=== PATIENT | female | born 1990 | race Caucasian/White ===

== ENCOUNTER → 2016-10-22 | Outpatient (CLI) | payer OTHER ==
[~2016-10-22] MED LIST: BCPILLS PO
== END | disposition home or self-care (01) ==
LOC: C.PAPS 15:20
PROVIDERS: ATTEND Obstetrics & Gynecology
DX: Z01.419 Encounter for gynecological examination (general) (routine) without abnormal findings (principal)

== ENCOUNTER 2022-12-03 12:30 | Inpatient (IN) ==
[2022-12-03 13:21] LABS: Hematocrit (blood only) 49.2 % (37.0-47.0); Hemoglobin 17.6 g/dl (12.0-16.0); Mean Corpuscular Hemoglobin 32.3 pg (25.0-34.0); Mean Corpuscular Hgb Conc 35.8 g/dL (32.0-36.0); Mean Corpuscular Volume 90.3 fL (80.0-100.0); Platelet Count 231 K/uL (130-400); RDW Coefficient of Variation 12.9 % (11.5-14.5); RDW Standard Deviation 42.2 fL (36.4-46.3); Red Blood Count 5.45 M/uL (4.20-5.40); White Blood Count 14.91 K/ul (4.8-10.8)
[2022-12-03 13:39] LABS: Partial Thromboplastin Ratio 0.8; Partial Thromboplastin Time 23.3 Seconds (21.0-31.0); Prothrombin Time 10.8 Seconds (9.0-12.0)
[2022-12-03 13:42] LABS: Alanine Aminotransferase 19 U/L (7-52); Albumin Globulin Ratio 1.6 (0.9-2); Albumin Level 4.6 gm/dl (3.4-5.0); Alkaline Phosphatase 58 U/L (34-104); Anion Gap 12 (3-11); Aspartate Aminotransferase 20 U/L (13-39); BUN Creatinine Ratio 16.2 (10-20); Bilirubin,Total 2.2 mg/dl (0.2-1.0); Blood Urea Nitrogen 16 mg/dl (6-23); Calcium 9.8 mg/dl (8.6-10.3); Carbon Dioxide 23 mmol/L (21-32); Chloride 101 mmol/L (98-107); Est GFR (African American) 86.8 ml/min; Est GFR (Non-African American) 74.9 ml/min; Globulin 2.9 gm/dl (2.5-4.0); Glucose 120 mg/dl (70-99(Fasting)); Potassium 3.8 mmol/L (3.5-5.1); Sodium 136 mmol/L (136-145); Total Protein 7.5 gm/dl (6.0-8.3)
[2022-12-03 13:46] LABS: Troponin I High Sensitivity 7.2 pg/ml (0-14)
[2022-12-03] MEDS ORDERED: SODIUM CHLORIDE 0.9% 1000ML 1,000 ML IV ONE ×2 (15:43→17:48)
[2022-12-03] MEDS ORDERED: ACETAMINOPHEN 1,000 MG/100 ML VIAL IV STA (15:43)
[2022-12-03] MEDS ORDERED: ONDANSETRON INJ 2 MG/ML 2 ML VIAL IV STA (15:43)
[2022-12-03] MEDS ORDERED: MoRPHine SULFATE 4 MG/ML 1 ML CARP\\VIAL IV STA ×2 (15:43→19:38)
--- NOTE | 2022-12-03 15:49 | Emergency Department Note ---
Impression & Plan Diffuse abdominal pain, Rectal bleeding, Leukocytosis, Colitis, Hypomagnesemia ED Provider Note NAME: RAVINDER FISHER AGE: 32 SEX: F : 1990 ARRIVES VIA: Walk-In INFORMANT: [Patient] ED PROVIDER(S): [Chris Larsen MD] CHIEF COMPLAINT: Abdominal pain HISTORY OF PRESENT ILLNESS: The patient is a 32-year-old female presents to the ER with diffuse abdominal pain that has been constant and present now since yesterday. She has also had nausea and vomiting. She started with diarrhea but now, she just has blood when she moves her bowels. The blood is bright red. The pain is severe. There has been no fever, no cough or congestion or chest pain. The patient states that s he was in the ED about a week ago for facial swelling. She was given Augmentin and prednisone. Her facial swelling has resolved. She has not taken the Augmentin for 2 days, she is finished with the steroid prescription. No previous abdominal surgeries. PMHx/PSHx: See Below SOCIAL HISTORY: See Below. PHYSICAL EXAM: GENERAL: Patient is in moderate distress from pain. HEENT: No acute trauma, normocephalic atraumatic, mucous membranes moist, no nasal congestion. NECK: No stridor, no adenopathy, no meningismus, trachea is midline. LUNGS: Clear to auscultation bilaterally, no wheeze, no rhonchi, breath sounds equal. HEART: Without murmurs gallops or rubs, regular rate and rhythm. ABDOMEN: Soft, diffusely moderately tender, bowel sounds are positive, no distention EXTREMITIES: No cyanosis or edema, full range of motion of all the joints without pain or difficulty, no signs for acute trauma. NEUROLOGIC: Oriented x 3, no acute motor or sensory deficits, no focal weakness. SKIN: No rash, no jaundice, no diaphoresis. Rectal: DIFFERENTIAL DIAGNOSIS: Foodborne or viral illness, diverticular bleeding, colitis, C. difficile colitis, bacterial intestinal infection, dehydration, electrolyte imbalance, anemia, medication reaction, among others. EMERGENCY DEPARTMENT COURSE/PROCEDURES: Prior/Outside records reviewed: Recent ED note. ECG per my interpretation: Indication was GI bleeding. The ECG shows a normal sinus rhythm with a rate of 72. There is no ST elevation, no PVCs but the QTc is 431. Continuous Cardiac Monitoring per my interpretation: An order was placed for continuous cardiac monitoring. The monitor shows a rate of 76 with normal sinus rhythm. Observation Note: The patient was placed in observation status at 1540. Obser vation was initiated to ensure adequate pain control and symptom control. During the time in observation, the patient was frequently reassessed and received IV pain medication IV hydration and monitoring. On Final reassessment the patient was still in discomfort and showing signs of rectal bleeding--the patient will be admitted at this time. Total observation time of around 6 hours. MEDICAL DECISION MAKING: There is a moderate leukocytosis, this could be consistent with infection, her pain or her recent steroid use. The patient was not anemic, hemoglobin was 17 .6. There was a normal platelet count. No coagulopathy. No renal failure. Magnesium was somewhat low at 1.6. Bilirubin was elevated, the remaining liver enzymes were unremarkable. ECG showed a normal sinus rhythm, no ischemia. Cardiac enzyme testing x1 was not consistent with acute cardiac injury. testing returned negative. Urinalysis showed dehydration, no obvious infection. Occult stool testing did show heme positivity. C. difficile testing returned negative. Stool cultures are currently pending. The patient received IV saline, 2 L. She was given IV Zofran and IV morphine, additional IV morphine was ordered. She was ordered for IV magnesium, IV Tylenol. Patient was persisting with discomfort and rectal bleeding. She was in need of a hospital stay. The cause for the rectal bleeding and colitis is not clear. It does not appear to be C. difficile colitis. We await stool culture results. I did speak with the patient and case management, the on-call hospitalist was consulted. DISPOSITION: Patient's presentation and findings warrant a hospital stay. Past Med/Surg History Medical History Migraine Surgical History (Updated 07/24/19 @ 17:18 by Melissa Munoz MD) H/O anterior cruciate ligament surgery (~2005) Social History Smoking Status: Current every day smoker Tobacco Type: Cigarettes and E-cigarettes / Vaping Preferred Language: [place]arag[place] Feels Safe at Home: Yes Allergies Allergies Allergy/AdvReac Type Severity Reaction Status Date / Time No Known Allergies Allergy Unknown Verified 11/26/22 16:30 Home Meds Home Medications Medication Instructions Recorded Confirmed norgestimate 0.25 mg-ethinyl 1 tab PO DAILY 09/12/20 12/03/22 estradiol 35 mcg tablet (Kinney-Linyah) sumatriptan succinate 50 mg tablet 50 mg PO DIRECTED PRN Migraine 11/26/22 12/03/22 Headache amoxicillin 875 mg-potassium See Rx Instructions .Route .COMPLEX 12/03/22 12/03/22 clavulanate 125 mg tablet methylprednisolone 4 mg tablets in See Rx Instructions .Route .COMPLEX 12/03/22 12/03/22 a dose pack (Medrol (Marcus)) Results & Data (ED) Vital Signs Vital Signs - 24 hr 12/03/22 12:46 12/03/22 15:40 12/03/22 15:40 Temperature 36.2 C L Temperature Source Temporal Artery Scan Pulse Rate 81 Pulse Rate [Apical] 76 Pulse Rate from SpO2 Sensor Pulse Rhythm Regular Respiratory Rate 20 20 Respiratory Effort / Characteristics Non-Labored Spontaneous Non-Labored Spontaneous Respiratory Depth Normal Normal Blood Pressure 106/69 Blood Pressure [Left Arm] 121/85 Blood Pressure Mean 81 Blood Pressure Mean [Left Arm] 97 Pulse Oximetry 100 97 98 Oxygen Delivery Method Room Air Room Air Sepsis Recent Fever Within 48 Hours No Sepsis New/Unexplained Change in Mental Status No Sepsis Action Taken by Nursing No Action Required 12/03/22 15:54 12/03/22 15:38 12/03/22 15:38 Temperature Temperature Source Pulse Rate 70 71 Pulse Rate [Apical] Pulse Rate from SpO2 Sensor 71 Pulse Rhythm Respiratory Rate 28 H Respiratory Effort / Characteristics Respiratory Depth Blood Pressure 121/85 Blood Pressure [Left Arm] Blood Pressure Mean 100 Blood Pressure Mean [Left Arm] Pulse Oximetry 99 Oxygen Delivery Method Sepsis Recent Fever Within 48 Hours Sepsis New/Unexplained Change in Mental Status Sepsis Action Taken by Nursing 12/03/22 16:00 12/03/22 16:00 12/03/22 16:30 Temperature Temperature Source Pulse Rate 63 Pulse Rate [Apical] Pulse Rate from SpO2 Sensor 63 Pulse Rhythm Respiratory Rate 28 H Respiratory Effort / Characteristics Respiratory Depth Blood Pressure 116/71 128/72 Blood Pressure [Left Arm] Blood Pressure Mean 98 83 Blood Pressure Mean [Left Arm] Pulse Oximetry 100 Oxygen Delivery Method Sepsis Recent Fever Within 48 Hours Sepsis New/Unexplained Change in Mental Status Sepsis Action Taken by Nursing 12/03/22 16:30 12/03/22 17:18 12/03/22 17:21 Temperature Temperature Source Pulse Rate 62 60 Pulse Rate [Apical] Pulse Rate from SpO2 Sensor 62 70 62 Pulse Rhythm Respiratory Rate 19 18 Respiratory Effort / Characteristics Respiratory Depth Blood Pressure Blood Pressure [Left Arm] Blood Pressure Mean Blood Pressure Mean [Left Arm] Pulse Oximetry 97 97 99 Oxygen Delivery Method Sepsis Recent Fever Within 48 Hours Sepsis New/Unexplained Change in Mental Status Sepsis Action Taken by Nursing 12/03/22 17:21 12/03/22 17:30 12/03/22 17:30 Temperature Temperature Source Pulse Rate 54 L Pulse Rate [Apical] Pulse Rate from SpO2 Sensor 53 L Pulse Rhythm Respiratory Rate 24 Respiratory Effort / Characteristics Respiratory Depth Blood Pressure 137/88 121/79 Blood Pressure [Left Arm] Blood Pressure Mean 102 94 Blood Pressure Mean [Left Arm] Pulse Oximetry 96 Oxygen Delivery Method Sepsis Recent Fever Within 48 Hours Sepsis New/Unexplained Change in Mental Status Sepsis Action Taken by Nursing 12/03/22 18:00 12/03/22 18:00 12/03/22 18:30 Temperature Temperature Source Pulse Rate 63 Pulse Rate [Apical] Pulse Rate from SpO2 Sensor 62 Pulse Rhythm Respiratory Rate 20 Respiratory Effort / Characteristics Respiratory Depth Blood Pressure 136/84 133/83 Blood Pressure [Left Arm] Blood Pressure Mean 92 97 Blood Pressure Mean [Left Arm] Pulse Oximetry 100 Oxygen Delivery Method Sepsis Recent Fever Within 48 Hours Sepsis New/Unexplained Change in Mental Status Sepsis Action Taken by Nursing 12/03/22 18:30 12/03/22 20:38 12/03/22 20:55 Temperature Temperature Source Pulse Rate 54 L 60 Pulse Rate [Apical] 63 Pulse Rate from SpO2 Sensor 54 L Pulse Rhythm Respiratory Rate 25 H 16 Respiratory Effort / Characteristics Respiratory Depth Blood Pressure Blood Pressure [Left Arm] 134/69 Blood Pressure Mean Blood Pressure Mean [Left Arm] 90 Pulse Oximetry 100 100 Oxygen Delivery Method Room Air Sepsis Recent Fever Within 48 Hours Sepsis New/Unexplained Change in Mental Status Sepsis Action Taken by Nursing 12/03/22 21:00 12/03/22 21:30 Temperature Temperature Source Pulse Rate 59 L 58 L Pulse Rate [Apical] Pulse Rate from SpO2 Sensor 59 L 57 L Pulse Rhythm Respiratory Rate 24 17 Respiratory Effort / Characteristics Respiratory Depth Blood Pressure 115/66 Blood Pressure [Left Arm] Blood Pressure Mean 82 Blood Pressure Mean [Left Arm] Pulse Oximetry 97 94 Oxygen Delivery Method Room Air Room Air Sepsis Recent Fever Within 48 Hours Sepsis New/Unexplained Change in Mental Status Sepsis Action Taken by [facility] Medications Current Medication List: was personally reviewed by me Laboratory Data Attestation: I reviewed the patient's lab results. 12/03/22 13:06 12/03/22 13:06 Lab Results 12/03/22 12/03/22 12/03/22 Range/Units 13:06 13:06 13:06 WBC 14.91 H (4.8-10.8) K/ul RBC 5.45 H (4.20-5.40) M/uL Hgb 17.6 H (12.0-16.0) g/dl Hct 49.2 H (37.0-47.0) % MCV 90.3 (80.0-100.0) fL MCH 32.3 (25.0-34.0) pg MCHC 35.8 (32.0-36.0) g/dL RDW Std Deviation 42.2 (36.4-46.3) fL RDW Coeff of Zaria 12.9 (11.5-14.5) % Plt Count 231 (130-400) K/uL MPV 10.0 (9.4-12.4) fL PT 10.8 (9.0-12.0) Seconds INR 1.0 (0.9-1.1) APTT 23.3 (21.0-31.0) Seconds PTT Ratio 0.8 Sodium (136-145) mmol/L Potassium (3.5-5.1) mmol/L Chloride (98-107) mmol/L Carbon Dioxide (21-32) mmol/L Anion Gap (3-11) BUN (6-23) mg/dl Creatinine (0.6-1.2) mg/dl Est Cr Clr Drug Dosing Est GFR ( Amer) ml/min Est GFR (Non-Af Amer) ml/min BUN/Creatinine Ratio (10-20) Glucose (70-99(Fasting)) mg/dl Calcium (8.6-10.3) mg/dl Magnesium (1.7-2.4) mg/dl Total Bilirubin (0.2-1.0) mg/dl AST (13-39) U/L ALT (7-52) U/L Alkaline Phosphatase (34-104) U/L Troponin I High Sens (0-14) pg/ml Total Protein (6.0-8.3) gm/dl Albumin (3.4-5.0) gm/dl Globulin (2.5-4.0) gm/dl Albumin/Globulin Ratio (0.9-2) HCG, Qual (Negative) Urine Color Urine Appearance (Clear) Urine pH (4.5-7.5) Ur Specific Slemp (1.000-1.030) Urine Protein (Negative) Urine Glucose (UA) (Negative) Urine Ketones (Negative) Urine Blood (Negative) Urine Nitrite (Negative) Urine Bilirubin (Negative) Urine Urobilinogen (Negative) Ur Leukocyte Esterase (Negative) Urine WBC (Auto) (0-5) /hpf Urine RBC (Auto) (0-4) /hpf U Hyaline Cast (Auto) (0-5) /lpf U Epithel Cells (Auto) (0-5) /lpf Urine Bacteria (Auto) (Negative) POC Stool Occult Blood (Negative) Stl C. diff Tox B Gene (Neg) Blood Type A Positive Antibody Screen NEGATIVE 12/03/22 12/03/22 12/03/22 Range/Units 13:06 13:06 15:37 WBC (4.8-10.8) K/ul RBC (4.20-5.40) M/uL Hgb (12.0-16.0) g/dl Hct (37.0-47.0) % MCV (80.0-100.0) fL MCH (25.0-34.0) pg MCHC (32.0-36.0) g/dL RDW Std Deviation (36.4-46.3) fL RDW Coeff of Zaria (11.5-14.5) % Plt Count (130-400) K/uL MPV (9.4-12.4) fL PT (9.0-12.0) Seconds INR (0.9-1.1) APTT (21.0-31.0) Seconds PTT Ratio Sodium 136 (136-145) mmol/L Potassium 3.8 (3.5-5.1) mmol/L Chloride 101 (98-107) mmol/L Carbon Dioxide 23 (21-32) mmol/L Anion Gap 12 H (3-11) BUN 16 (6-23) mg/dl Creatinine 0.99 (0.6-1.2) mg/dl Est Cr Clr Drug Dosing Not Reportable Est GFR ( Amer) 86.8 ml/min Est GFR (Non-Af Amer) 74.9 ml/min BUN/Creatinine Ratio 16.2 (10-20) Glucose 120 H (70-99(Fasting)) mg/dl Calcium 9.8 (8.6-10.3) mg/dl Magnesium 1.6 L (1.7-2.4) mg/dl Total Bilirubin 2.2 H (0.2-1.0) mg/dl AST 20 (13-39) U/L ALT 19 (7-52) U/L Alkaline Phosphatase 58 (34-104) U/L Troponin I High Sens 7.2 (0-14) pg/ml Total Protein 7.5 (6.0-8.3) gm/dl Albumin 4.6 (3.4-5.0) gm/dl Globulin 2.9 (2.5-4.0) gm/dl Albumin/Globulin Ratio 1.6 (0.9-2) HCG, Qual Negative (Negative) Urine Color Morgan Urine Appearance Clear (Clear) Urine pH 7.5 (4.5-7.5) Ur Specific Slemp 1.033 H (1.000-1.030) Urine Protein 1+ H (Negative) Urine Glucose (UA) Negative (Negative) Urine Ketones 2+ H (Negative) Urine Blood Trace H (Negative) Urine Nitrite Negative (Negative) Urine Bilirubin Negative (Negative) Urine Urobilinogen Negative (Negative) Ur Leukocyte Esterase Trace H (Negative) Urine WBC (Auto) 1-5 (0-5) /hpf Urine RBC (Auto) 10-30 H (0-4) /hpf U Hyaline Cast (Auto) 1-5 (0-5) /lpf U Epithel Cells (Auto) >30 H (0-5) /lpf Urine Bacteria (Auto) Negative (Negative) POC Stool Occult Blood (Negative) Stl C. diff Tox B Gene (Neg) Blood Type Antibody Screen 12/03/22 12/03/22 Range/Units 16:58 16:58 WBC (4.8-10.8) K/ul RBC (4.20-5.40) M/uL Hgb (12.0-16.0) g/dl Hct (37.0-47.0) % MCV (80.0-100.0) fL MCH (25.0-34.0) pg MCHC (32.0-36.0) g/dL RDW Std Deviation (36.4-46.3) fL RDW Coeff of Zaria (11.5-14.5) % Plt Count (130-400) K/uL MPV (9.4-12.4) fL PT (9.0-12.0) Seconds INR (0.9-1.1) APTT (21.0-31.0) Seconds PTT Ratio Sodium (136-145) mmol/L Potassium (3.5-5.1) mmol/L Chloride (98-107) mmol/L Carbon Dioxide (21-32) mmol/L Anion Gap (3-11) BUN (6-23) mg/dl Creatinine (0.6-1.2) mg/dl Est Cr Clr Drug Dosing Est GFR ( Amer) ml/min Est GFR (Non-Af Amer) ml/min BUN/Creatinine Ratio (10-20) Glucose (70-99(Fasting)) mg/dl Calcium (8.6-10.3) mg/dl Magnesium (1.7-2.4) mg/dl Total Bilirubin (0.2-1.0) mg/dl AST (13-39) U/L ALT (7-52) U/L Alkaline Phosphatase (34-104) U/L Troponin I High Sens (0-14) pg/ml Total Protein (6.0-8.3) gm/dl Albumin (3.4-5.0) gm/dl Globulin (2.5-4.0) gm/dl Albumin/Globulin Ratio (0.9-2) HCG, Qual (Negative) Urine Color Urine Appearance (Clear) Urine pH (4.5-7.5) Ur Specific Slemp (1.000-1.030) Urine Protein (Negative) Urine Glucose (UA) (Negative) Urine Ketones (Negative) Urine Blood (Negative) Urine Nitrite (Negative) Urine Bilirubin (Negative) Urine Urobilinogen (Negative) Ur Leukocyte Esterase (Negative) Urine WBC (Auto) (0-5) /hpf Urine RBC (Auto) (0-4) /hpf U Hyaline Cast (Auto) (0-5) /lpf U Epithel Cells (Auto) (0-5) /lpf Urine Bacteria (Auto) (Negative) POC Stool Occult Blood Positive A (Negative) Stl C. diff Tox B Gene Negative Cdiff Gene (Neg) Blood Type Antibody Screen Administered Medications Discontinued Medications Sodium Chloride (Nss 1000ml) 1,000 mls @ 999 mls/hr IV .Q1H1M ONE Stop: 12/03/22 16:43 Last Infusion: 12/03/22 19:33 Dose: 0 mls/hr Documented By: Admin: 12/03/22 15:51 Dose: 999 mls/hr Documented By: HS Acetaminophen (Ofirmev) 1,000 mg in 100 mls @ 400 mls/hr IV NOW STA Stop: 12/03/22 15:57 Last Infusion: 12/03/22 16:09 Dose: 0 mls/hr Documented By: Admin: 12/03/22 15:52 Dose: 400 mls/hr Documented By: HS Magnesium Sulfate/Dextrose (Magnesium Sulfate / D5w) 1 gm in 100 mls @ 100 mls/hr IV NOW STA Stop: 12/03/22 17:41 Last Infusion: 12/03/22 19:33 Dose: 0 mls/hr Documented By: [facility] Admin: 12/03/22 17:19 Dose: 100 mls/hr Documented By: HS Sodium Chloride (Nss 1000ml) 1,000 mls @ 999 mls/hr IV .Q1H1M ONE Stop: 12/03/22 18:48 Last Infusion: 12/03/22 19:33 Dose: 0 mls/hr Documented By: F Admin: 12/03/22 18:30 Dose: 999 mls/hr Documented By: HS Ioversol (Optiray 320 100ml) 92 ml IV ONCE ONE Stop: 12/03/22 16:18 Last Admin: 12/03/22 19:33 Dose: Not Given Documented By: [facility] Morphine Sulfate (Morphine Sulfate 4 Mg/Ml 1 Ml Carp\Vial) 4 mg IV NOW STA Stop: 12/03/22 15:44 Last Admin: 12/03/22 15:51 Dose: 4 mg Documented By: HS Morphine Sulfate (Morphine Sulfate 4 Mg/Ml 1 Ml Carp\Vial) 4 mg IV NOW STA Stop: 12/03/22 19:39 Last Admin: 12/03/22 19:57 Dose: 4 mg Documented By: VALE Ondansetron HCl (Ondansetron Inj 2 Mg/Ml 2 Ml Vial) 4 mg IV NOW STA Stop: 12/03/22 15:44 Last Admin: 12/03/22 15:51 Dose: 4 mg Documented By: Imaging Data Radiologist's Impression: Abdomen/Pelvis CT 12/03/22 15:43 CT SCAN OF THE ABDOMEN AND PELVIS WITH IV CONTRAST CLINICAL HISTORY: Generalized abdominal pain. Hematochezia. COMPARISON STUDY: No priors. TECHNIQUE: Following the IV administration of 92 cc of Optiray 320, CT scan of the abdomen and pelvis is performed from the lung bases to the proximal femora. Images are reviewed in the axial, sagittal, and coronal planes. IV contrast was administered without complication. A dose lowering technique was utilized adhering to the principles of ALARA. CT DOSE: 710.03 mGy.cm FINDINGS: Lung bases: The heart is normal in size and without pericardial effusion. The lung bases are clear. Liver: The contrast-enhanced liver is normal in size, contour, and attenuation. There is no intrahepatic biliary ductal dilatation. The hepatic veins and portal veins are patent. An 11 mm cyst is incidentally noted in the right lobe. Gallbladder: Unremarkable. Spleen: Normal in size and attenuation. Pancreas: Unremarkable. Adrenal glands: Unremarkable. Kidneys: The contrast enhanced kidneys are normal in size and without hydroneph rosis. The kidneys enhance symmetrically. Abdominal vasculature: The abdominal aorta is normal in course and caliber. Bowel: There is significant wall thickening and edema seen throughout the colon. This extends from the cecum to the proximal descending colon, and there is associated mucosal hyperemia and surrounding inflammation/fluid. Findings are consistent with a nonspecific colitis. No bowel obstruction is identified. The appendix is normal as visualized. Residual enteric contrast is suggested within the left colon. Peritoneum: There is no intraperitoneal free air or abdominal ascites. There is a small fat-containing umbilical hernia. Lymphadenopathy: None. Pelvic viscera: The bladder is decompressed and grossly unremarkable. The uterus and adnexa are normal as visualized noting ovarian follicles. There is a small volume of free fluid in the cul-de-sac. A tampon is in place. Skeletal structures: No lytic or blastic lesions are seen. IMPRESSION: 1. Findings are consistent with nonspecific colitis, greatest involving the right colon. This is likely on an infectious/inflammatory basis and clinical correlation will be required. 2. Free fluid in the cul-de-sac is nonspecific and may be physiologic. 3. Additional findings as above. ACT 112: Negative or not required by law. Electronically signed by: Chris Ridley M.D. 12/03/2022 4:40 PM Discharge Plan Visit Data Chief Complaint: Abdominal Pain Stated Complaint: BLOODY STOOL, STOMACH PAIN ED Provider: Chris Larsen Discharge Problem: Diffuse abdominal pain, Rectal bleeding, Leukocytosis, Colitis, Hypomagnesemia Patient Disposition: Admitted As Inpatient Condition: Fair Forms Stand Alone Forms: [facility] Prescriptions Prescriptions: No Action norgestimate-ethinyl estradiol [Kinney-Linyah] 0.25-35 mg-mcg tablet 1 tab PO DAILY sumatriptan succinate 50 mg tablet 50 mg PO DIRECTED PRN (Reason: Migraine Headache) Rx Instructions: last filled in mar 2022 methylprednisolone [Medrol (Marcus)] 4 mg tablets,dose pack See Rx Instructions .ROUTE .COMPLEX Rx Instructions: As directed. Verified with pharmacy, pt should be finished with medication amoxicillin-pot clavulanate 875-125 mg tablet See Rx Instructions .ROUTE .COMPLEX Rx Instructions: 1 bid. Verified with pharmacy Referrals Referrals: PCP,NO [Primary Care Provider] -
[2022-12-03 15:53] LABS: Appearance Urine Clear (Clear); Bacteria Urine Automated Negative (Negative); Bilirubin Urine Negative (Negative); Blood Urine Trace (Negative); Color Urine Orange; Epithelial Cell Urine Auto >30 /lpf (0-5); Glucose Urine UA Negative (Negative); Ketones Urine 2+ (Negative); Leukocyte Esterase Urine Trace (Negative); Nitrite Urine Negative (Negative); Specific Gravity Urine 1.033 (1.000-1.030); Urobilinogen Urine Negative (Negative); pH Urine 7.5 (4.5-7.5)
[2022-12-03 15:59] LABS: Protein Urine 1+ (Negative)
[2022-12-03] MEDS ORDERED: OPTIRAY 320 100ml IV ONE (16:17)
[2022-12-03 16:36] LABS: Pregnancy Test, Serum Negative (Negative)
[2022-12-03 16:39] LABS: Magnesium 1.6 mg/dl (1.7-2.4)
--- NOTE | 2022-12-03 16:41 | CT Scan Report ---
CT SCAN OF THE ABDOMEN AND PELVIS WITH IV CONTRAST CLINICAL HISTORY: Generalized abdominal pain. Hematochezia. COMPARISON STUDY: No priors. TECHNIQUE: Following the IV administration of 92 cc of Optiray 320, CT scan of the abdomen and pelvi s is performed from the lung bases to the proximal femora. Images are reviewed in the axial, sagittal , and coronal planes. IV contrast was administered without complication. A dose lowering technique wa s utilized adhering to the principles of ALARA. CT DOSE: 710.03 mGy.cm FINDINGS: Lung bases: The heart is normal in size and without pericardial effusion. The lung bases are clear. Liver: The contrast-enhanced liver is normal in size, contour, and attenuation. There is no intrahepa tic biliary ductal dilatation. The hepatic veins and portal veins are patent. An 11 mm cyst is incide ntally noted in the right lobe. Gallbladder: Unremarkable. Spleen: Normal in size and attenuation. Pancreas: Unremarkable. Adrenal glands: Unremarkable. Kidneys: The contrast enhanced kidneys are normal in size and without hydronephrosis. The kidneys enh ance symmetrically. Abdominal vasculature: The abdominal aorta is normal in course and caliber. Bowel: There is significant wall thickening and edema seen throughout the colon. This extends from th e cecum to the proximal descending colon, and there is associated mucosal hyperemia and surrounding i nflammation/fluid. Findings are consistent with a nonspecific colitis. No bowel obstruction is identi fied. The appendix is normal as visualized. Residual enteric contrast is suggested within the left c olon. Peritoneum: There is no intraperitoneal free air or abdominal ascites. There is a small fat-containin g umbilical hernia. Lymphadenopathy: None. Pelvic viscera: The bladder is decompressed and grossly unremarkable. The uterus and adnexa are aileen l as visualized noting ovarian follicles. There is a small volume of free fluid in the cul-de-sac. A tampon is in place. Skeletal structures: No lytic or blastic lesions are seen. IMPRESSION: 1. Findings are consistent with nonspecific colitis, greatest involving the right colon. This is like ly on an infectious/inflammatory basis and clinical correlation will be required. 2. Free fluid in the cul-de-sac is nonspecific and may be physiologic. 3. Additional findings as above. ACT 112: Negative or not required by law. Electronically signed by: Chris Ridley M.D. 12/03/2022 4:40 PM
[2022-12-03] MEDS ORDERED: MAGNESIUM SULFATE / D5W 1 GM/100 ML BAG IV STA (16:42)
--- NOTE | 2022-12-03 20:58 | History & Physical Report ---
Date of Service December 03, 2022 Assessment & Plan (1) Bloody diarrhea: (2) Hx of migraines: Plan Pt is a 32 yo female with a past medical history of migraines who presents to the hospital on 12/03/22 for bloody stools and abdominal pain. #Bloody diarrhea, abdominal pain - diarrhea started yesterday around noon, bloody since midnight, cramping since yesterday afternoon - pt was on Augmentin since 11/26, last dose yesterday morning - CT abd showed colitis, worst in R colon - Hgb 17.6, likely secondary to dehydration, will do LR 125/hr for 2L - stool labs pending, including c diff - due to recent facial swelling and R colon inflammation noted on CT, if stool labs come back negative, consider IBD like crohns #Migraine - continue home sumatriptan VTE: pt low risk Dispo: Medsurg Consults: - History of Present Illness Chief Complaint: Bloody stools Primary Care Provider: NO PCP Pt is a 32 yo female with a past medical history of migraines who presents to the hospital on 12/03/22 for bloody stools and abdominal pain. Pt states that she started to feel sick yesterday afternoon with several bouts of watery diarrhea, then around 3pm she started to get abdominal pain and nausea with one episode of nonbloody emesis. She states that from about midnight last night onwards, she has been having bloody diarrhea with mostly blood and very little fecal material. She was here about 1 week ago for facial swelling and was sent home on augmentin and steroids. She states her last dose of augmentin was yesterday morning. She states that her abdominal pain has been diffuse and has not lightened up at all since it started yesterday. No fever or chills. No recent travel noted. No other complaints at this time. Allergies Allergy/AdvReac Type Severity Reaction Status Date / Time No Known Allergies Allergy Unknown Verified 11/26/22 16:30 Home Medications Medication Instructions Recorded Confirmed Type norgestimate 0.25 mg-ethinyl 1 tab PO DAILY 09/12/20 12/03/22 History estradiol 35 mcg tablet ([place]-Linyah) sumatriptan succinate 50 mg tablet 50 mg PO DIRECTED PRN Migraine 11/26/22 12/03/22 History Headache amoxicillin 875 mg-potassium See Rx Instructions .Route .COMPLEX 12/03/22 12/03/22 History clavulanate 125 mg tablet methylprednisolone 4 mg tablets in See Rx Instructions .Route .COMPLEX 12/03/22 12/03/22 History a dose pack (Medrol (Marcus)) Past Med/Surg History Medical History Migraine Surgical History (Updated 07/24/19 @ 17:18 by Melissa Munoz MD) H/O anterior cruciate ligament surgery (~2005) Social History Smoking Status: Current every day smoker Tobacco Type: Cigarettes and E-cigarettes / Vaping Cigarettes Per Day: 5; Tobacco Cessation Education Requested by Patient: No Hx Alcohol Use: Yes Hx Substance Use: No Preferred Language: [place] Communication Ability: Effective 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 Beliefs That Will Affect Care: None Current Living Situation: Family Other Information That Helps Us Care for You: No Feels Safe at Home: Yes Safety Concerns: Feels Safe At This Time Assistive Devices: None Review of Systems Review of Systems: Constitutional: denies fever, chills, Cardio: denies chest pain, palpitations Resp: denies shortness of breath, cough GI: +abdominal pain, +nausea, +diarrhea Physical Exam Physical Exam: General: Alert and oriented, no acute distress, HEENT: Normocephalic, moist oral mucosa, Cardio: Regular rate and rhythm, no murmur, Resp: Lungs clear to auscultation b/l, GI: Soft but diffusely tender, bowel sounds active Skin: Warm, pink, dry, Psych: Mood-affect congruence. Results & Data Results & Data Vital Signs (Past 12 Hours) Vital Signs Temp Pulse Pulse Resp BP BP Pulse Ox 12/03/22 20:38 63 16 134/69 100 12/03/22 18:30 54 L 25 H 100 12/03/22 18:30 133/83 12/03/22 18:00 63 20 100 12/03/22 18:00 136/84 12/03/22 17:30 54 L 24 96 12/03/22 17:30 121/79 12/03/22 17:21 137/88 12/03/22 17:21 60 18 99 12/03/22 17:18 97 08/21/23 16:30 62 19 97 12/03/22 16:30 128/72 12/03/22 16:00 63 28 H 100 12/03/22 16:00 116/71 12/03/22 15:38 71 28 H 99 12/03/22 15:38 121/85 12/03/22 15:54 70 12/03/22 15:40 98 12/03/22 15:40 76 20 121/85 97 12/03/22 12:46 36.2 C L 81 20 106/69 100 O2 Del Method 12/03/22 20:38 Room Air 12/03/22 18:30 12/03/22 18:30 12/03/22 18:00 12/03/22 18:00 12/03/22 17:30 12/03/22 17:30 12/03/22 17:21 12/03/22 17:21 12/03/22 17:18 12/03/22 16:30 12/03/22 16:30 12/03/22 16:00 12/03/22 16:00 12/03/22 15:38 12/03/22 15:38 12/03/22 15:54 12/03/22 15:40 Room Air 12/03/22 15:40 12/03/22 12:46 Room Air Supervising Physician Co-Signing Physician Notes Patient seen and examined, chart reviewed, case discussed with Dr. De La Cruz and I agree with the assessment and plan as above. In brief, patient is a 32yo female presenting with severe diffuse abdominal pain and watery diarrhea then bloody diarrhea ongoing x 1 day. Also with nausea and dry heaving. No fever or chills. No sick contacts or recent travel. Patient was seen in the ER one week ago for facial edema and was prescribed Augmentin Patient afebrile, HD stable, appears ill but non-toxic Skin - no rash HEENT - dry mucus membranes, neck supple Heart - +S1/S2, regular, no m/r/g Lungs - CTA Abd - soft, diffusely tender without rebound or peritonitis, bowel sounds present Ext - warm, well perfused Labs and images reviewed Appears dehydrated based on hemoconcentration, ketones and SG in urine Electrolytes and renal function are intact CT with nonspecific colitis mostly in right colon Assessment/Plan -Suspect infectious colitis. Possible C.diff given recent antibiotic use -Awaiting stool panel and c. diff IVF and Pain control Remainder as above Resident Activity Tracking Resident Involvement: Resident Care Provided Care Provided: Adult [facility]
[2022-12-03 22:09] LABS: Adenovirus F 40/41 PCR Not Detected (NotDetected); Astrovirus PCR Not Detected (NotDetected); Campylobacter PCR Not Detected (NotDetected); Cryptosporidium PCR Not Detected (NotDetected); Cyclospora cayetanensis PCR Not Detected (NotDetected); Entamoeba histolytica PCR Not Detected (NotDetected); Enteroaggregative E.coli(EAEC) Not Detected (NotDetected); Enteropathogenic E.coli (EPEC) Not Detected (NotDetected); Enterotoxigenic E.coli (ETEC) Not Detected (NotDetected); Giardia lamblia PCR Not Detected (NotDetected); Norovirus GI/GII PCR Not Detected (NotDetected); Plesiomonas shigelloides PCR Not Detected (NotDetected); Rotavirus A PCR Not Detected (NotDetected); Salmonella PCR Not Detected (NotDetected); Sapovirus PCR Not Detected (NotDetected); Shiga-like Toxin E.coli (STEC) Not Detected (NotDetected); Shigella/Enteroinvasive E.coli Not Detected (NotDetected); Vibrio cholerae PCR Not Detected (NotDetected); Vibrio species PCR Not Detected (NotDetected); Yersinia enterocolitica PCR Not Detected (NotDetected)
[2022-12-03] MEDS ORDERED: MoRPHine SULFATE 4 MG/ML 1 ML CARP\\VIAL ONE (22:39)
[2022-12-03] MEDS: LACTATED RINGER'S 1,000 ML IV SCH (22:41)
[2022-12-04] MEDS: MoRPHine SULFATE 4 MG/ML 1 ML CARP\\VIAL IV PRN ×2 (02:15→06:38)
--- NOTE | 2022-12-04 06:07 | Electrocardiogram Report ---
Test Reason : Blood Pressure : / mmHG Vent. Rate : 072 BPM Atrial Rate : 072 BPM P-R Int : 130 ms QRS Dur : 070 ms QT Int : 394 ms P-R-T Axes : 074 073 051 degrees QTc Int : 431 ms Normal sinus rhythm Normal ECG When compared with ECG of 12-SEP-2020 10:35, No significant change was found Confirmed by Elijah Ortega ([id number]) on 12/04/2022 6:06:55 AM Referred By: Confirmed By:Elijah Ortega
[2022-12-04] MEDS: LACTATED RINGER'S 1,000 ML IV SCH (06:35)
[2022-12-04 09:09] LABS: Basophils # (auto) 0.03 K/uL (0-0.2); Basophils % (auto) 0.2 %; Eosinophils # (auto) 0.09 K/uL (0-0.50); Eosinophils % (auto) 0.6 %; Hemoglobin 14.6 g/dl (12.0-16.0); Immature Granulocytes # (auto) 0.08 K/uL (0.01-0.20); Immature Granulocytes % (auto) 0.5 %; Lymphocytes # (auto) 2.59 K/uL (1.2-3.4); Lymphocytes % (auto) 17.2 %; Mean Corpuscular Hemoglobin 32.6 pg (25.0-34.0); Mean Corpuscular Hgb Conc 34.8 g/dL (32.0-36.0); Mean Corpuscular Volume 93.8 fL (80.0-100.0); Mean Platelet Volume 10.1 fL (9.4-12.4); Monocytes # (auto) 1.55 K/uL (0.11-0.59); Monocytes % (auto) 10.3 %; Neutrophils # (auto) 10.76 K/uL (1.40-6.50); Neutrophils % (auto) 71.2 %; Platelet Count 166 K/uL (130-400); RDW Standard Deviation 44.6 fL (36.4-46.3); Red Blood Count 4.48 M/uL (4.20-5.40)
[2022-12-04] MEDS ORDERED: ONDANSETRON INJ 2 MG/ML 2 ML VIAL IV PRN (09:23)
[2022-12-04 09:26] LABS: BUN Creatinine Ratio 9.4 (10-20); Calcium 8.2 mg/dl (8.6-10.3); Creatinine Clr Calc Pharmacy 130.7 ml/min; Est GFR (African American) 135.9 ml/min; Est GFR (Non-African American) 117.2 ml/min; Potassium 4.1 mmol/L (3.5-5.1)
[2022-12-04] MEDS: HYDROmorphone INJ 1 MG/ML SYRINGE IV PRN ×3 (09:41→19:21)
[2022-12-04] MEDS: metroNIDAZOLE 500 MG/100 ML BAG IV SCH ×2 (13:07→19:24)
[2022-12-04] MEDS: CIPROFLOXACIN / D5W 400 MG/200 ML BAG IV SCH ×2 (14:10→23:12)
[2022-12-04] MEDS: oxyCODONE HCL IR 5 MG TAB (IMMEDIATE RELEASE) PO PRN ×2 (15:14→21:14)
--- NOTE | 2022-12-04 16:48 | Hospitalist Progress Note ---
Date of Service December 04, 2022 Assessment & Plan (1) Infectious enteritis: Plan: Continue IV fluids. Pain control measures. Stool BioFire is negative. She was recently on antibiotics but C. difficile toxin is negative. Nevertheless, she is now on intravenous Cipro and Flagyl, day 1 (2) Hx of migraines: Plan: Triptan treatment as needed Plan Hopeful discharge back to home soon once symptoms lee Admission and Anticipated Discharge Date Admission Date: December 04, 2022 Subjective Alert and oriented. Complaining of diffuse abdominal discomfort. White blood cell count is elevated. She was recently on antibiotics but C. difficile toxin is negative. Nevertheless, she has been started on intravenous Cipro and Flag yl. Continue IV fluids. Full liquid diet as tolerated Review of Systems Review of Systems: Constitutional-no fever or chills ENT-no blurred vision, no double vision, no epistaxis, no sore throat Respiratory-no cough, no wheezing, no shortness of breath Cardiac-no palpitations, no chest pain, no syncope GI-nausea. Several episodes of vomiting without hematemesis. Several episodes of bloody diarrhea. Diffuse abdominal pain -no urinary retention, no urinary incontinence, no dysuria, no hematuria Musculoskeletal-no joint pain, no muscle tenderness Skin-no bruising, no rashes, no pruritus Neuro-no isolated weakness, no paresthesia, no weakness Psych-no depression, no anxiety Physical Exam Physical Exam: General-alert and oriented x3, no fevers, no chills HEENT-head atraumatic and normocephalic, pupils equal and reactive to light, extraocular muscles intact Neck-no lymphadenopathy or thyromegaly, trachea midline Chest-clear to auscultation percussion. No rales wheezing or rhonchi Cardiac-regular rate and rhythm, normal S1 and S2, no murmurs Abdomen-nondistended. Diffusely tender. Active bowel sounds. No rebound or guarding. No masses Extremities-no cyanosis, clubbing, or edema Neuro-cranial nerves II through XII intact, motor and sensory function within normal limits, strength symmetrical , no focal deficits Psych-normal affect, normal mood Results & Data Results & Data Vital Signs (Past 12 Hours) Vital Signs Temp Pulse Resp BP BP Pulse Ox O2 Del Method 12/04/22 14:47 36.9 C 62 14 110/71 96 Room Air 12/04/22 07:13 36.9 C 61 14 115/71 97 Room Air Laboratory Results 12/04/22 08:28 12/04/22 08:28 PG Care Time/CCT Total # of Minutes Spent Total Time Spent with Patient: Total time spent is greater than 50% in coordination of care (as documented) at patient's floor/unit and/or counseling patient: Coding Level of Care Code 29853 SUB INP/OBS CARE 3/50MIN Diagnoses Infectious enteritis A09 Hx of migraines Z86.69
[2022-12-04] MEDS: SUMAtriptan succinate 50 MG TAB PO PRN (21:48)
--- NOTE | 2022-12-04 21:59 | Billing Data ---
Date of Service December 03, 2022 Coding Level of Care Code 82297 INT INP/OBS CARE
[2022-12-05] MEDS: HYDROmorphone INJ 1 MG/ML SYRINGE IV PRN (00:45)
[2022-12-05] MEDS: metroNIDAZOLE 500 MG/100 ML BAG IV SCH ×3 (02:00→18:41)
[2022-12-05] MEDS: oxyCODONE HCL IR 5 MG TAB (IMMEDIATE RELEASE) PO PRN ×4 (03:05→21:18)
[2022-12-05 06:52] LABS: Basophils # (auto) 0.04 K/uL (0-0.2); Basophils % (auto) 0.3 %; Eosinophils # (auto) 0.21 K/uL (0-0.50); Eosinophils % (auto) 1.6 %; Hematocrit (blood only) 36.7 % (37.0-47.0); Hemoglobin 12.4 g/dl (12.0-16.0); Immature Granulocytes % (auto) 0.8 %; Lymphocytes # (auto) 3.31 K/uL (1.2-3.4); Mean Corpuscular Hemoglobin 32.4 pg (25.0-34.0); Mean Corpuscular Hgb Conc 33.8 g/dL (32.0-36.0); Mean Corpuscular Volume 95.8 fL (80.0-100.0); Mean Platelet Volume 9.8 fL (9.4-12.4); Monocytes # (auto) 1.08 K/uL (0.11-0.59); Monocytes % (auto) 8.5 %; Neutrophils % (auto) 62.8 %; Platelet Count 123 K/uL (130-400); RDW Coefficient of Variation 12.8 % (11.5-14.5); RDW Standard Deviation 45.6 fL (36.4-46.3); Red Blood Count 3.83 M/uL (4.20-5.40); White Blood Count 12.74 K/ul (4.8-10.8)
[2022-12-05 07:16] LABS: BUN Creatinine Ratio 5.6 (10-20); Creatinine Clr Calc Pharmacy 117.8 ml/min; Est GFR (African American) 129.7 ml/min; Est GFR (Non-African American) 111.9 ml/min; Potassium 4.2 mmol/L (3.5-5.1)
[2022-12-05] MEDS: SUMAtriptan succinate 50 MG TAB PO PRN (09:13)
[2022-12-05] MEDS ORDERED: HYDROmorphone INJ 1 MG/ML SYRINGE IV PRN (09:46)
[2022-12-05] MEDS: SODIUM CHLORIDE 0.9% 1000ML 1,000 ML IV SCH (10:11)
[2022-12-05] MEDS: CIPROFLOXACIN / D5W 400 MG/200 ML BAG IV SCH ×2 (12:15→22:35)
--- NOTE | 2022-12-05 13:02 | Hospitalist Progress Note ---
Date of Service December 05, 2022 Assessment & Plan (1) Bloody diarrhea: Plan: Suspected infectious enteritis. Improving with intravenous Cipro and Flagyl, day 2. White count trending down. Diet has been advanced. IV fluids taper down. Continue pain control measures. (2) Hx of migraines: Plan: Triptan medication as needed Plan Hopefully home tomorrow, December 06, on an oral antibiotic Admission and Anticipated Discharge Date Admission Date: December 04, 2022 Subjective Alert and oriented. No distress. Significant other is at the bedside. She looks and feels better. White count is down to 12,000. Diet will be advanced to regular diet. IV fluids tapered down. Stool serology remains pending. C. difficile negative. Hopefully she can go home tomorrow, December 06, on an oral antibiotic Review of Systems Review of Systems: Constitutional-no fever or chills ENT-no blurred vision, no double vision, no epistaxis, no sore throat Respiratory-no cough, no wheezing, no shortness of breath Cardiac-no palpitations, no chest pain, no syncope GI-nausea and vomiting have resolved. Episodes of bloody diarrhea diminishing. Diffuse abdominal pain has lessened -no urinary retention, no urinary incontinence, no dysuria, no hematuria Musculoskeletal-no joint pain, no muscle tenderness Skin-no bruising, no rashes, no pruritus Neuro-no isolated weakness, no paresthesia, no weakness Psych-no depression, no anxiety Physical Exam Physical Exam: General-alert and oriented x3, no fevers, no chills HEENT-head atraumatic and normocephalic, pupils equal and reactive to light, extraocular muscles intact Neck-no lymphadenopathy or thyromegaly, trachea midline Chest-clear to auscultation percussion. No rales wheezing or rhonchi Cardiac-regular rate and rhythm, normal S1 and S2, no murmurs Abdomen-nondistended. Diffusely tender but less so. Active bowel sounds. No rebound or guarding. No masses Extremities-no cyanosis, clubbing, or edema Neuro-cranial nerves II through XII intact, motor and sensory function within normal limits, strength symmetrical , no focal deficits Psych-normal affect, normal mood Results & Data Results & Data Vital Signs (Past 12 Hours) Vital Signs Temp Pulse Resp BP Pulse Ox O2 Del Method 08/23/23 07:02 36.7 C 59 L 14 92/59 L 96 Room Air Laboratory Results 12/05/22 06:39 12/05/22 06:39 PG Care Time/CCT Total # of Minutes Spent Total Time Spent with Patient: Total time spent is greater than 50% in coordination of care (as documented) at patient's floor/unit and/or counseling patient: Coding Level of Care Code 14204 SUB INP/OBS CARE 2/35MIN Diagnoses Bloody diarrhea R19.7 Hx of migraines Z86.69
[2022-12-05] MEDS ORDERED: HYDROmorphone INJ 0.5 MG/0.5 ML SYR IV PRN (18:05)
[2022-12-05] MEDS ORDERED: Nursing to Pharmacy Communication SCH (20:45)
[2022-12-06] MEDS: SODIUM CHLORIDE 0.9% 1000ML 1,000 ML IV SCH (02:50)
[2022-12-06] MEDS: metroNIDAZOLE 500 MG/100 ML BAG IV SCH ×2 (02:50→10:57)
[2022-12-06] MEDS: oxyCODONE HCL IR 5 MG TAB (IMMEDIATE RELEASE) PO PRN ×2 (04:35→10:54)
[2022-12-06 07:49] LABS: Basophils # (auto) 0.03 K/uL (0.00-0.20); Basophils % (auto) 0.4 %; Eosinophils # (auto) 0.22 K/uL (0.00-0.50); Eosinophils % (auto) 2.8 %; Hematocrit (blood only) 35.4 % (37.0-47.0); Immature Granulocytes # (auto) 0.02 K/uL (0.01-0.20); Immature Granulocytes % (auto) 0.3 %; Lymphocytes # (auto) 2.37 K/uL (1.20-3.40); Lymphocytes % (auto) 29.9 %; Mean Corpuscular Hemoglobin 32.5 pg (25.0-34.0); Mean Corpuscular Hgb Conc 33.9 g/dL (32.0-36.0); Mean Corpuscular Volume 95.9 fL (80.0-100.0); Monocytes # (auto) 0.61 K/uL (0.11-0.59); Monocytes % (auto) 7.7 %; Neutrophils # (auto) 4.68 K/uL (1.40-6.50); Neutrophils % (auto) 58.9 %; Platelet Count 127 K/uL (130-400); RDW Coefficient of Variation 12.6 % (11.5-14.5); Red Blood Count 3.69 M/uL (4.20-5.40); White Blood Count 7.93 K/ul (4.8-10.8)
[2022-12-06 08:13] LABS: BUN Creatinine Ratio 7.6 (10-20); Calcium 7.9 mg/dl (8.6-10.3); Creatinine Clr Calc Pharmacy 126.7 ml/min; Est GFR (African American) 134.5 ml/min; Est GFR (Non-African American) 116.1 ml/min
[2022-12-06] MEDS: CIPROFLOXACIN / D5W 400 MG/200 ML BAG IV SCH (10:56)
--- NOTE | 2022-12-06 12:00 | Discharge Summary ---
Date of Service December 06, 2022 Admission HPI Per Admitting Provider Pt is a 32 yo female with a past medical history of migraines who presents to the hospital on 12/03/22 for bloody stools and abdominal pain. Pt states that she started to feel sick yesterday afternoon with several bouts of watery diarrhea, then around 3pm she started to get abdominal pain and nausea with one episode of nonbloody emesis. She states that from about midnight last night onwards, she has been having bloody diarrhea with mostly blood and very little fecal material. She was here about 1 week ago for facial swelling and was sent home on augmentin and steroids. She states her last dose of augmentin was yesterday morning. She states that her abdominal pain has been diffuse and has not lightened up at all since it started yesterday. No fever or chills. No recent travel noted. No other complaints at this time. Principal Diagnosis Infectious enteritis Discharge Exam General-alert and oriented x3, no fevers, no chills HEENT-head atraumatic and normocephalic, pupils equal and reactive to light, extraocular muscles intact Neck-no lymphadenopathy or thyromegaly, trachea midline Chest-clear to auscultation percussion. No rales wheezing or rhonchi Cardiac-regular rate and rhythm, normal S1 and S2, no murmurs Abdomen-nondistended. Diffusely tender but less so. Active bowel sounds. No rebound or guarding. No masses Extremities-no cyanosis, clubbing, or edema Neuro-cranial nerves II through XII intact, motor and sensory function within normal limits, strength symmetrical , no focal deficits Psych-normal affect, normal mood Discharge Data Allergies Allergy/AdvReac Type Severity Reaction Status Date / Time No Known Allergies Allergy Unknown Verified 11/26/22 16:30 Consultations 12/03/22 19:26 ED Decision to Admit Stat Ordered Studies 12/03/22 15:43 CT abd pelvis IV con only Stat Hospital Course (1) Bloody diarrhea: Suspected infectious enteritis. Improved with intravenous Cipro and Flagyl. White count trending down. Diet has been advanced. IV fluids tapered down. Home on oral Cipro (2) Hx of migraines: Triptan medication as needed Plan Home today, December 06, on oral Cipro Total Time Total Time Spent Total Time Spent (In Minutes): 40 minutes Discharge Plan Discharge Items Patient Disposition: Home - Self-Care Reason For Visit: BLOODY STOOLS, ABDOMINAL PAIN Discharge Diagnosis: Infectious enteritis Condition on Discharge: Good Activity: Resume your previous activity Non-emergency contact: Primary Care Provider Call non-emergency contact if: your symptoms worsen Follow-up/Referrals: PCP,NO [Primary Care Provider] - Diet: Regular Addtl Attending Provider Instructions: Take Cipro antibiotic for 1 week Pending Studies at Discharge: No Stand-Alone Forms: My [employer] Al[employer] Than You, Smoking Cessation Medications and DC Order Prescriptions: New ciprofloxacin HCl [Cipro] 500 mg tablet 500 mg PO BID Qty: 14 0RF Continued norgestimate-ethinyl estradiol [Hanson-Linyah] 0.25-35 mg-mcg tablet 1 tab PO DAILY sumatriptan succinate 50 mg tablet 50 mg PO DIRECTED PRN (Reason: Migraine Headache) Rx Instructions: last filled in mar 2022 Discontinued methylprednisolone [Medrol (Marcus)] 4 mg tablets,dose pack See Rx Instructions .ROUTE .COMPLEX Rx Instructions: As directed. Verified with pharmacy, pt should be finished with medication amoxicillin-pot clavulanate 875-125 mg tablet See Rx Instructions .ROUTE .COMPLEX Rx Instructions: 1 bid. Verified with pharmacy Discharge Orders: Discharge Order (Routine); Ordered 12/06/22 Ordered By: Jerald Seaman Admission Data Admit Date/Time: 12/04/22 10:38 Attending Provider: Jerald Seaman Admit Provider: Claritza De La Cruz Primary Care Provider: PCP,NO Other Providers: Violeta Olmstead Coding Level of Care Code 16297 INP/OBS DISCH >30 MIN Diagnoses Bloody diarrhea R19.7 Hx of migraines Z86.69
== END 2022-12-06 15:48 | disposition home or self-care (01) | DRG 392 ==
LOC: 3E 12:30 → ED 12:30 → SUATTDRO 21:43 → 3E 22:57